=== PATIENT | female | born 1985 | race Caucasian/White ===

== ENCOUNTER 2022-02-27 19:39 | Emergency (ER) | payer OTHER ==
[2022-02-27 19:50] VITALS: BP 123/70; PULSE 80; RESP 16; TEMP 97.8
--- NOTE | 2022-02-27 20:28 | ED ---
General Adult HPI - General Chief complaint: Extremity Injury, Lower Stated complaint: Possible Blood Clot L Leg/Sent by [facility] Time Seen by Provider: 02/27/22 20:16 Source: patient, RN notes reviewed, old records reviewed Mode of arrival: ambulatory - History of Present Illness Initial comments: Patient is a 37-year-old female who presents from urgent care for ultrasound for DVT. Since 12 AM last night, patient has had isolated left ankle and foot swelling. Urgent care obtained x-rays and showed no acute fracture or subluxation. Was sent here for ultrasound. Denies any pain. Denies any calf swelling. Denies any recent long distance travel. Denies any shortness of breath, chest pain. Denies abdominal pain, nausea, vomiting. Has no other acute complaints at this time. Denies any known trauma. His able to ambulate on it without difficulty. Presents for ultrasound. No family history of blood clots. - Related Data Home Medications Medication Instructions Recorded Confirmed No Known Home Medications 02/27/22 02/27/22 Allergies Allergy/AdvReac Type Severity Reaction Status Date / Time No Known Allergies Allergy Verified 02/27/22 21:48 Review of Systems ROS Statement: Those systems with pertinent positive or pertinent negative responses have been documented in the HPI. Review of Systems: CONST: Denies fever EYES: Denies blurry vision ENT: Denies nasal congestion C/V: Denies Chest pain RESP: Denies shortness of breath GI: Denies abdominal pain : Denies dysuria SKIN: Denies rash. MSK: Endorse's left foot swelling. Denies pain. NEURO: Denies headache ROS Other: All systems not noted in ROS Statement are negative. Past Medical History Past Medical History: No Reported History History of Any Multi-Drug Resistant Organisms: None Reported Past Surgical History: No Surgical Hx Reported Past Psychological History: No Psychological Hx Reported Smoking Status: Current some day smoker Past Alcohol Use History: Rare Past Drug Use History: Marijuana General Exam - General Exam Comments Initial Comments: General: Appears in no acute distress. HEAD: Normal with no signs of head trauma. EYES: EOMI ENT: Hearing grossly intact, normal oropharynx. RESPIRATORY: Clear breath sounds bilaterally. No hypoxia. No increased work of breathing. C/V: Regular rate and rhythm. S1 and S2 auscultated, no pitting edema. Sym metrical joints bilaterally., peripheral pulses 2+ and intact throughout ABD: Abd is soft, nontender, nondistended EXT: Normal range of motion, no obvious deformity. Slight increased swelling of the left ankle and left dorsal foot. No tenderness on palpation. No calf pain. SKIN: No rashes or lesions observed on exposed skin. NEURO: Alert and oriented 4. No focal sensory strength deficits. Course Vital Signs 02/27/22 19:45 Temperature 97.8 F Pulse Rate 80 Respiratory 16 Rate Blood Pressure 123/70 O2 Sat by Pulse 98 Oximetry Medical Decision Making - Medical Decision Making Based on the patient's presentation and physical exam, I have low suspicion for a blood clot at this time but patient is seeking an ultrasound after being sent here. Already had x-rays obtained at the outpatient urgent care that were read as negative. She has no pain. Exam is unremarkable. Have no concern for PE at this time. We'll obtain an ultrasound duplex of the left lower extremity. She was in agreement with this plan. Laboratory studies or further imaging required at this time. Venous Doppler showed no signs of acute DVT. I discussed the results with the patient. I believe it is safer to be discharged home at this time. She was in agreement this plan. Vital signs remained within normal limits and stable. I instructed the patient to follow up with their PCP in the next 3 days. I explained that the patient should return to the emergency department if they experience any worsening symptoms. Strict return precautions were discussed with the patient. The patient expressed understanding of these instructions. I answered all questions that the patient had. The patient was discharged home in good condition with their prescriptions and follow up information. Disposition Clinical Impression: Foot swelling Disposition: HOME SELF-CARE Condition: Good Instructions (If sedation given, give patient instructions): Swollen Joint (ED) Is patient prescribed a controlled substance at d/c from ED?: No Referrals: Oksana Sánchez MD [Primary Care Provider] - 1-2 days Time of Disposition: 22:10
--- NOTE | 2022-02-27 22:04 | US ---
EXAMINATION TYPE: US venous doppler duplex LE lt DATE OF EXAM: 02/27/2022 9:10 PM COMPARISON: NONE CLINICAL HISTORY: leg/foot swelling. Edema SIDE PERFORMED: Left TECHNIQUE: The lower extremity deep venous system is examined utilizing real time linear array sonog edwin with graded compression, doppler sonography and color-flow sonography. VESSELS IMAGED: Common Femoral Vein Deep Femoral Vein Greater Saphenous Vein * Femoral Vein Popliteal Vein Small Saphenous Vein * Proximal Calf Veins (* superficial vessels) Grayscale, color doppler, spectral doppler imaging performed of the deep veins of the lower extremiti es. There is normal flow, compressibility, vascular waveforms. Left Leg: Negative for DVT, the images were mislabeled as right lower extremity. IMPRESSION: No evidence of left lower extremity deep vein tendinosis.
== END 2022-02-27 23:05 | disposition home or self-care (01) ==
LOC: EC 19:39
DX: M79.89 Other specified soft tissue disorders (principal); F17.200 Nicotine dependence, unspecified, uncomplicated